=== PATIENT | female | born 1990 | race Two or more races ===

== ENCOUNTER → 2022-08-06 | Outpatient (CLI) | payer OTHER, SELFPAY | LOC: M WHC 06:46 | PROVIDERS: ATTEND Obstetrics & Gynecology | DX: Z34.92 Encounter for supervision of normal pregnancy, unspecified, second trimester (principal) ==

== ENCOUNTER → 2022-09-05 | Outpatient (CLI) | payer OTHER ==
[2022-09-05 14:55] LABS: MEAN CORPUSCULAR HEMOGLOBIN 29.3 pg (27.0-33.0); MEAN CORPUSCULAR HGB CONC 31.6 g/dl (32.0-36.5); MEAN CORPUSCULAR VOLUME 92.9 fl (80.0-96.0); PLATELET COUNT, AUTOMATED 269 10^3/uL (150-450); RED BLOOD COUNT 4.09 10^6/uL (4.00-5.40); WHITE BLOOD COUNT 10.4 10^3/uL (4.0-10.0)
== END ==
LOC: M PLALAB 12:20
PROVIDERS: ATTEND Specialist
DX: Z36.89 Encounter for other specified antenatal screening (principal)
CPT/HCPCS: 36415; 85027; 86850; 86900; 86901; G0463

== ENCOUNTER → 2022-09-24 | Outpatient (CLI) | payer OTHER ==
[2022-09-24 13:52] LABS: HEMATOCRIT 35.3 % (36.0-47.0); HEMOGLOBIN 11.2 g/dl (12.0-15.5); MEAN CORPUSCULAR HEMOGLOBIN 29.4 pg (27.0-33.0); MEAN CORPUSCULAR HGB CONC 31.7 g/dl (32.0-36.5); MEAN CORPUSCULAR VOLUME 92.7 fl (80.0-96.0); PLATELET COUNT, AUTOMATED 268 10^3/uL (150-450); RED BLOOD COUNT 3.81 10^6/uL (4.00-5.40)
[2022-09-24 15:50] LABS: GC DNA AMPLIFICATION NEGATIVE (NEGATIVE)
== END ==
LOC: M PLALAB 08:51
PROVIDERS: ATTEND Specialist
DX: Z34.82 Encounter for supervision of other normal pregnancy, second trimester (principal)

== ENCOUNTER → 2022-09-24 | Outpatient (CLI) | payer OTHER | LOC: M WHC 10:38 | PROVIDERS: ATTEND Specialist | DX: Z34.82 Encounter for supervision of other normal pregnancy, second trimester (principal) ==

== ENCOUNTER → 2022-09-26 | Outpatient (CLI) | payer OTHER | LOC: M LAB 07:38 | PROVIDERS: ATTEND Specialist | DX: Z34.82 Encounter for supervision of other normal pregnancy, second trimester (principal) ==

== ENCOUNTER → 2022-10-08 | Outpatient (CLI) | payer OTHER ==
[2022-10-08 17:33] LABS: HEMATOCRIT 37.3 % (36.0-47.0); HEMOGLOBIN 11.7 g/dl (12.0-15.5); MEAN CORPUSCULAR HEMOGLOBIN 29.3 pg (27.0-33.0); MEAN CORPUSCULAR HGB CONC 31.4 g/dl (32.0-36.5); MEAN CORPUSCULAR VOLUME 93.3 fl (80.0-96.0); PLATELET COUNT, AUTOMATED 248 10^3/uL (150-450); WHITE BLOOD COUNT 8.3 10^3/uL (4.0-10.0)
[2022-10-08 17:40] LABS: TOTAL PROTEIN,RANDOM URINE 6.2 MG/DL (0.0-14.0)
[2022-10-08 17:43] LABS: URIC ACID 4.3 MG/DL (3.1-7.8)
[2022-10-08 17:44] LABS: LDH LACTATE DEHYDROGENASE 149 U/L (120-246)
[2022-10-08 17:45] LABS: CREATININE,RANDOM URINE 58.4 MG/DL
[2022-10-08 17:46] LABS: ALT/SGPT 17 U/L (7.0-40); AST/SGOT 18 U/L (<34); BILIRUBIN,TOTAL 0.2 MG/DL (0.3-1.2); CREATININE FOR GFR 0.87 MG/DL (0.55-1.30); GLOMERULAR FILTRATION RATE > 60.0 (>60)
== END ==
LOC: M PLALAB 14:44
PROVIDERS: ATTEND Advanced Practice Midwife
DX: O13.9 Gestational [pregnancy-induced] hypertension without significant proteinuria, unspecified trimester (principal)

== ENCOUNTER 2022-10-29 11:37 | Emergency (ER) | payer OTHER ==
[~2022-10-29] VITALS: Ht 188 cm; Wt 124.5 kg
[2022-10-29 14:45] LABS: BASO % 0.2 % (0.0-1.0); EOS % 0.4 % (0.0-3.0); HEMATOCRIT 38.8 % (36.0-47.0); HEMOGLOBIN 12.4 g/dl (12.0-15.5); LYMPH # 1.9 10^3/uL (1.5-5.0); LYMPH % 22.5 % (24.0-44.0); MEAN CORPUSCULAR HEMOGLOBIN 29.2 pg (27.0-33.0); MEAN CORPUSCULAR VOLUME 91.3 fl (80.0-96.0); MONO # 0.5 10^3/uL (0.0-0.8); MONO % 5.5 % (2.0-8.0); NEUTROPHILS % 70.8 % (36.0-66.0); PLATELET COUNT, AUTOMATED 247 10^3/uL (150-450); RED BLOOD COUNT 4.25 10^6/uL (4.00-5.40); WHITE BLOOD COUNT 8.4 10^3/uL (4.0-10.0)
[2022-10-29 15:09] LABS: INR 0.96
[2022-10-29 15:12] LABS: LIPASE 32 U/L (12-53)
[2022-10-29 15:14] LABS: CPK CREATINE PHOSPHOKINASE 56 U/L (34-145)
[2022-10-29 15:18] LABS: ALBUMIN 2.8 G/DL (3.2-5.2); ALKALINE PHOSPHATASE 73 U/L (46-116); ALT/SGPT 17 U/L (7.0-40); AST/SGOT 19 U/L (<34); BILIRUBIN,DIRECT < 0.1 MG/DL (<0.4); BILIRUBIN,TOTAL 0.4 MG/DL (0.3-1.2); BLOOD UREA NITROGEN 10 MG/DL (9-23); CALCIUM LEVEL 9.1 MG/DL (8.5-10.1); CARBON DIOXIDE LEVEL 24 MMOL/L (20-31); CHLORIDE LEVEL 104 MMOL/L (98-107); CK-MB VALUE MASS < 1.0 NG/ML (<3.6); CREATININE FOR GFR 0.72 MG/DL (0.55-1.30); GLOMERULAR FILTRATION RATE > 60.0 (>60); GLUCOSE, FASTING 74 MG/DL (60-100); MB/CK RELATIVE INDEX 1.78 (< OR =4); POTASSIUM SERUM 4.1 MMOL/L (3.5-5.1); SODIUM LEVEL 137 MMOL/L (136-145); TOTAL PROTEIN 6.2 G/DL (5.7-8.2)
[2022-10-29 15:23] LABS: RSV AMPLIFICATION NEGATIVE (NEGATIVE)
[2022-10-29 17:12] LABS: CK-MB VALUE MASS < 1.0 NG/ML (<3.6)
[2022-10-29 17:14] LABS: CPK CREATINE PHOSPHOKINASE 52 U/L (34-145); MB/CK RELATIVE INDEX 1.92 (< OR =4)
[2022-10-29] MEDS ORDERED: GI COCKTAIL 50ML BTL(HYOSCYAMINE/MAALOX/LIDOCAINE VISCOUS)(1:3:1) PO ONE (17:25)
[2022-10-29] MEDS ORDERED: ACETAMINOPHEN 325 MG TAB PO ONE (17:25)
[2022-10-29 18:36] VITALS: BP 139/78
[2022-10-29] MEDS ORDERED: CALC-132 PO (19:05)
[2022-10-29] MEDS ORDERED: PRENTAB9 PO (19:05)
[2022-10-29] MEDS ORDERED: ACET-907 PO (19:05)
== END 2022-10-29 18:38 | disposition admitted as inpatient to this hospital (09) ==
LOC: M ED 11:37
DX: R07.89 Other chest pain (principal)

== ENCOUNTER 2022-10-29 18:45 | Outpatient (CLI) | payer OTHER ==
[~2022-10-29] VITALS: Ht 188 cm; Wt 126.8 kg
[2022-10-29 18:59] VITALS: BP 136/78
[2022-10-29] MEDS ORDERED: PRENTAB9 PO (19:05)
[2022-10-29] MEDS ORDERED: CALC-132 PO (19:05)
[2022-10-29] MEDS ORDERED: ACET-907 PO (19:05)
[2022-10-29] MEDS ORDERED: HOME MED LIST COMPLETE! XX SCH (19:10)
== END 2022-10-29 19:30 | disposition home or self-care (01) ==
LOC: M LDO 18:45
PROVIDERS: ATTEND Specialist
DX: O26.893 Other specified pregnancy related conditions, third trimester (principal); R07.9 Chest pain, unspecified; Z3A.32 32 weeks gestation of pregnancy
CPT/HCPCS: 36415; 59025; 71045; 80048; 80076; 82550; 82553; 83690; 84484; 85025; 85610; 87631; 93005; 99284; G0463

== ENCOUNTER → 2022-11-22 | Outpatient (REF) | payer OTHER ==
[~2022-11-22] MED LIST: ACET-907 PO; CALC-132 PO; PRENTAB9 PO
== END ==
LOC: M PLALAB 13:32
PROVIDERS: ATTEND Obstetrics & Gynecology
DX: Z34.80 Encounter for supervision of other normal pregnancy, unspecified trimester (principal)

== ENCOUNTER → 2022-12-06 | Outpatient (CLI) | payer OTHER ==
[2022-12-06 16:20] LABS: HEMATOCRIT 38.8 % (36.0-47.0); HEMOGLOBIN 12.2 g/dl (12.0-15.5); MEAN CORPUSCULAR HEMOGLOBIN 29.4 pg (27.0-33.0); MEAN CORPUSCULAR HGB CONC 31.4 g/dl (32.0-36.5); MEAN CORPUSCULAR VOLUME 93.5 fl (80.0-96.0); PLATELET COUNT, AUTOMATED 238 10^3/uL (150-450); RED BLOOD COUNT 4.15 10^6/uL (4.00-5.40); WHITE BLOOD COUNT 8.5 10^3/uL (4.0-10.0)
[2022-12-06 16:37] LABS: URIC ACID 4.4 MG/DL (3.1-7.8)
[2022-12-06 16:39] LABS: LDH LACTATE DEHYDROGENASE 159 U/L (120-246)
[2022-12-06 16:40] LABS: ALT/SGPT 30 U/L (7.0-40); AST/SGOT 24 U/L (<34); BILIRUBIN,TOTAL 0.3 MG/DL (0.3-1.2); CREATININE FOR GFR 0.76 MG/DL (0.55-1.30); CREATININE,RANDOM URINE 76.3 MG/DL; GLOMERULAR FILTRATION RATE > 60.0 (>60)
== END ==
LOC: M PLALAB 14:21
PROVIDERS: ATTEND Obstetrics & Gynecology
DX: O16.3 Unspecified maternal hypertension, third trimester (principal)
CPT/HCPCS: 36415; 82247; 82565; 82570; 83615; 84156; 84450; 84460; 84550; 85027; G0463

== ENCOUNTER 2022-12-13 18:51 | Outpatient (CLI) | payer OTHER ==
[~2022-12-13] VITALS: Ht 188 cm; Wt 135.3 kg
[2022-12-13 19:20] VITALS: BP 134/68
[2022-12-13 19:31] LABS: HEMATOCRIT 36.6 % (36.0-47.0); HEMOGLOBIN 11.8 g/dl (12.0-15.5); MEAN CORPUSCULAR HEMOGLOBIN 29.6 pg (27.0-33.0); MEAN CORPUSCULAR HGB CONC 32.2 g/dl (32.0-36.5); MEAN CORPUSCULAR VOLUME 91.7 fl (80.0-96.0); PLATELET COUNT, AUTOMATED 217 10^3/uL (150-450); RED BLOOD COUNT 3.99 10^6/uL (4.00-5.40); WHITE BLOOD COUNT 8.2 10^3/uL (4.0-10.0)
[2022-12-13 19:45] VITALS: BP 150/78
[2022-12-13 19:47] LABS: URIC ACID 4.2 MG/DL (3.1-7.8)
[2022-12-13 19:49] LABS: LDH LACTATE DEHYDROGENASE 146 U/L (120-246)
[2022-12-13 19:50] LABS: ALT/SGPT 32 U/L (7.0-40); AST/SGOT 19 U/L (<34); BILIRUBIN,TOTAL 0.3 MG/DL (0.3-1.2); CREATININE FOR GFR 0.74 MG/DL (0.55-1.30); GLOMERULAR FILTRATION RATE > 60.0 (>60)
[2022-12-13 19:56] VITALS: BP 142/72
[2022-12-13 19:57] LABS: TOTAL PROTEIN,RANDOM URINE 12.9 MG/DL (0.0-14.0)
[2022-12-13 20:02] LABS: CREATININE,RANDOM URINE 68.6 MG/DL
[2022-12-13 20:41] VITALS: BP 142/73
[2022-12-13 20:56] VITALS: BP 139/78
== END 2022-12-13 23:04 ==
LOC: M LDO 18:51
PROVIDERS: ATTEND Advanced Practice Midwife
DX: O13.3 Gestational [pregnancy-induced] hypertension without significant proteinuria, third trimester (principal); Z3A.39 39 weeks gestation of pregnancy
CPT/HCPCS: 36415; 59025; 76815; 76819; 76820; 82247; 82565; 82570; 83615; 84156; 84450; 84460; 84550; 85027; G0463

== ENCOUNTER 2022-12-14 17:38 | Inpatient (IN) | payer OTHER ==
[~2022-12-14] VITALS: Ht 188 cm; Wt 135.4 kg
[2022-12-14] MEDS ORDERED: HOME MED LIST COMPLETE! XX SCH (18:00)
[2022-12-14 18:03] VITALS: BP 134/63
[2022-12-14 18:27] VITALS: BP 149/69
[2022-12-14 19:11] VITALS: BP 143/76
[2022-12-14] MEDS ORDERED: LACTATED RINGER'S 1000 ML IV STA (19:22)
[2022-12-14] MEDS ORDERED: CARBOPROST TROMETHAMINE 250 MCG/ML AMP IM PRN (19:25)
[2022-12-14] MEDS ORDERED: OXYTOCIN DRIP 30 UNITS in IV 1 EA IV PRN (19:25)
[2022-12-14] MEDS ORDERED: TRANEXAMIC ACID INJection 1,000 MG in NS 100 ML IV PRN (19:25)
[2022-12-14] MEDS ORDERED: LIDOCAINE 1% MDV 20ML VIAL INFIL PRN (19:25)
[2022-12-14] MEDS: miSOPROStol 50MCG 1/2 TABLET SL SCH (20:28)
[2022-12-14 20:30] LABS: HEMATOCRIT 35.8 % (36.0-47.0); HEMOGLOBIN 11.5 g/dl (12.0-15.5); MEAN CORPUSCULAR HEMOGLOBIN 29.7 pg (27.0-33.0); MEAN CORPUSCULAR HGB CONC 32.1 g/dl (32.0-36.5); MEAN CORPUSCULAR VOLUME 92.5 fl (80.0-96.0); PLATELET COUNT, AUTOMATED 212 10^3/uL (150-450); RED BLOOD COUNT 3.87 10^6/uL (4.00-5.40); WHITE BLOOD COUNT 8.2 10^3/uL (4.0-10.0)
[2022-12-14 20:34] VITALS: BP 144/71
[2022-12-14 20:51] LABS: URIC ACID 4.3 MG/DL (3.1-7.8)
[2022-12-14 20:53] LABS: LDH LACTATE DEHYDROGENASE 147 U/L (120-246)
[2022-12-14 20:54] LABS: ALT/SGPT 26 U/L (7.0-40); AST/SGOT 18 U/L (<34); BILIRUBIN,TOTAL 0.3 MG/DL (0.3-1.2); CREATININE FOR GFR 0.65 MG/DL (0.55-1.30); GLOMERULAR FILTRATION RATE > 60.0 (>60)
[2022-12-14 21:55] VITALS: BP 140/66
[2022-12-14 22:50] LABS: TOTAL PROTEIN,RANDOM URINE 11.1 MG/DL (0.0-14.0)
[2022-12-14 22:55] LABS: CREATININE,RANDOM URINE 103.4 MG/DL
[2022-12-15] VITALS (23 sets, daily range): BP systolic 110–156; BP diastolic 53–87
[2022-12-15] MEDS: miSOPROStol 50MCG 1/2 TABLET SL SCH ×7 (00:33→23:40)
[2022-12-15] MEDS: LR 1,000 ML IV SCH ×3 (03:05→16:37)
[2022-12-15] MEDS ORDERED: OXYTOCIN DRIP 30 UNITS in IV 1 EA IV SCH (09:55)
[2022-12-15] MEDS: CLINDAMYCIN 900 MG in IV 1 EA IV SCH ×2 (10:32→18:49)
[2022-12-16] VITALS (36 sets, daily range): BP systolic 105–147; BP diastolic 52–82
[2022-12-16] MEDS: LR 1,000 ML IV SCH ×3 (01:00→20:05)
[2022-12-16] MEDS: CLINDAMYCIN 900 MG in IV 1 EA IV SCH ×3 (02:45→18:56)
[2022-12-17] VITALS (14 sets, daily range): BP systolic 105–147; BP diastolic 52–74
[2022-12-17 00:26] LABS: URIC ACID 4.1 MG/DL (3.1-7.8)
[2022-12-17 00:27] LABS: HEMATOCRIT 35.5 % (36.0-47.0); HEMOGLOBIN 11.2 g/dl (12.0-15.5); MEAN CORPUSCULAR HEMOGLOBIN 29.1 pg (27.0-33.0); MEAN CORPUSCULAR HGB CONC 31.5 g/dl (32.0-36.5); MEAN CORPUSCULAR VOLUME 92.2 fl (80.0-96.0); PLATELET COUNT, AUTOMATED 203 10^3/uL (150-450); RED BLOOD COUNT 3.85 10^6/uL (4.00-5.40)
[2022-12-17 00:28] LABS: LDH LACTATE DEHYDROGENASE 172 U/L (120-246)
[2022-12-17 00:29] LABS: ALT/SGPT 22 U/L (7.0-40); AST/SGOT 20 U/L (<34); BILIRUBIN,TOTAL 0.4 MG/DL (0.3-1.2); GLOMERULAR FILTRATION RATE > 60.0 (>60)
[2022-12-17] MEDS: CLINDAMYCIN 900 MG in IV 1 EA IV SCH (02:32)
[2022-12-17] MEDS: LR 1,000 ML IV SCH ×4 (02:57→15:05)
[2022-12-17] MEDS ORDERED: LACTATED RINGER'S 1000 ML IV STA (05:25)
[2022-12-17] MEDS ORDERED: CLINDAMYCIN 900 MG in IV 1 EA IV ONE (05:30)
[2022-12-17] MEDS ORDERED: ePHEDrine SULFATE 25 MG/5 ML(5MG/ML) SYRINGE As Ordered ONE (05:54)
[2022-12-17] MEDS ORDERED: MORPHINE PRES-FREE INJ 10 MG/10 ML VIAL As Ordered ONE (05:54)
[2022-12-17] MEDS ORDERED: OXYTOCIN 30UNITS IN 0.9% NaCl 500ML IV BAG As Ordered ONE ×2 (05:54→08:11)
[2022-12-17] MEDS ORDERED: PHENYLephrine 500MCG 5ML (100MCG/ML) SYRINGE As Ordered ONE (05:54)
[2022-12-17] MEDS ORDERED: BICITRA 30ML SOLN UDC PO ONE (06:00)
[2022-12-17] MEDS ORDERED: AZITHROMYCIN INJ 500 MG, VIAL MATE ADAPTER 1 EACH in NS 250 ML IV ONE (06:00)
[2022-12-17] MEDS ORDERED: ONDANSETRON 4MG 2ML VIAL As Ordered ONE (06:29)
[2022-12-17] MEDS ORDERED: GENTAMICIN 400 MG in D5W 100 ML IV ONE (06:30)
[2022-12-17] MEDS ORDERED: KETOROLAC 60MG 2ML VIAL As Ordered ONE (06:39)
[2022-12-17 06:50] LABS: CORD GAS HCO3 V 25.1 MEQ/L; CORD GAS O2 SAT V 68.5 %; CORD GAS PH V 7.345 UNITS; CORD GAS PO2 V 29.1 mmHg; CORD GAS SBC V 22.9 MEQ/L; CORD GAS TCO2 V 26.5 MEQ/L
[2022-12-17 06:52] LABS: CORD GAS ABE A -2.9; CORD GAS HCO3 A 25.5 MEQ/L; CORD GAS O2 SAT A 55.6 %; CORD GAS PCO2 A 60.1 mmHg; CORD GAS PH A 7.245 UNITS; CORD GAS PO2 A 25.8 mmHg; CORD GAS SBC A 21.1 MEQ/L; CORD GAS TCO2 A 27.3 MEQ/L
[2022-12-17] MEDS ORDERED: OXYTOCIN DRIP 30 UNITS in IV 1 EA IV SCH (07:05)
[2022-12-17] MEDS ORDERED: ONDANSETRON 4MG 2ML VIAL IV PRN ×2 (07:05→08:40)
[2022-12-17] MEDS ORDERED: SIMETHICONE 80MG CHEW TAB PO PRN (07:05)
[2022-12-17] MEDS ORDERED: MOM 30ML SUSPENSION UDC PO PRN (07:05)
[2022-12-17] MEDS ORDERED: RHOGAM 300MCG (1500IU) INJ IM SCH (07:05)
[2022-12-17] MEDS ORDERED: fentaNYL 100 MCG/2 ML INJECTION IV PRN (08:40)
[2022-12-17] MEDS ORDERED: NALOXONE INJ 0.4MG/1ML VIAL IV PRN ×2 (08:40)
[2022-12-17] MEDS ORDERED: NORCO, ANEXSIA 5/325MG TABLET (HYDROcodone/ACETAMINOPHEN) PO PRN (08:40)
[2022-12-17] MEDS ORDERED: LR 1,000 ML IV SCH (08:40)
[2022-12-17] MEDS ORDERED: METOCLOPRAMIDE INJ 10MG/2ML VIAL IV PRN (08:40)
[2022-12-17] MEDS ORDERED: diphenhydrAMINE 50MG/ML VIAL IV PRN (08:40)
[2022-12-17] MEDS: SLF 3 ML SYR IV SCH ×2 (08:40→16:40)
[2022-12-17] MEDS ORDERED: MEPERIDINE 25 MG/ML 1ML VIAL IV PRN (08:40)
[2022-12-17] MEDS ORDERED: **NOTE PATIENT COMMENT** MISC XX SCH (08:40)
[2022-12-17] MEDS: DOCUSATE SODIUM 100MG CAPSULE PO SCH ×2 (09:00→21:28)
[2022-12-17] MEDS: PRENATAL VITAMINS CHEWABLE TABLET PO SCH (09:00)
[2022-12-17] MEDS: NORCO, ANEXSIA 5/325MG TABLET (HYDROcodone/ACETAMINOPHEN) PO PRN ×3 (10:07→21:57)
[2022-12-17] MEDS: KETOROLAC 30 MG/ML 1ML VIAL IV SCH ×2 (12:42→18:34)
[2022-12-18] VITALS (7 sets, daily range): BP systolic 120–179; BP diastolic 59–87
[2022-12-18] MEDS: SLF 3 ML SYR IV SCH (01:00)
[2022-12-18] MEDS: KETOROLAC 30 MG/ML 1ML VIAL IV SCH (01:01)
[2022-12-18] MEDS: NORCO, ANEXSIA 5/325MG TABLET (HYDROcodone/ACETAMINOPHEN) PO PRN ×4 (05:49→22:06)
[2022-12-18 06:38] LABS: HEMATOCRIT 34.5 % (36.0-47.0); HEMOGLOBIN 10.7 g/dl (12.0-15.5); MEAN CORPUSCULAR HEMOGLOBIN 29.2 pg (27.0-33.0); MEAN CORPUSCULAR VOLUME 94.3 fl (80.0-96.0); PLATELET COUNT, AUTOMATED 172 10^3/uL (150-450); RED BLOOD COUNT 3.66 10^6/uL (4.00-5.40); WHITE BLOOD COUNT 10.9 10^3/uL (4.0-10.0)
[2022-12-18] MEDS: PRENATAL VITAMINS CHEWABLE TABLET PO SCH (08:32)
[2022-12-18] MEDS: IBUPROFEN 800 MG TAB PO SCH ×2 (08:33→16:49)
[2022-12-18] MEDS: DOCUSATE SODIUM 100MG CAPSULE PO SCH ×2 (08:53→21:00)
[2022-12-18] MEDS: LABETALOL 100MG TAB PO SCH (20:41)
[2022-12-19] MEDS: IBUPROFEN 800 MG TAB PO SCH ×2 (00:36→07:34)
[2022-12-19 02:00] VITALS: BP 133/63
[2022-12-19 06:00] VITALS: BP 138/84
[2022-12-19] MEDS: DOCUSATE SODIUM 100MG CAPSULE PO SCH (07:30)
[2022-12-19] MEDS: PRENATAL VITAMINS CHEWABLE TABLET PO SCH (07:30)
[2022-12-19 07:33] VITALS: BP 136/78
[2022-12-19] MEDS: LABETALOL 100MG TAB PO SCH (07:33)
[2022-12-19 07:39] VITALS: BP 136/78
[2022-12-19] MEDS ORDERED: HYDR-3715 PO (08:58)
[2022-12-19] MEDS ORDERED: LABE100T6 PO (08:58)
[2022-12-19] MEDS ORDERED: COLA100C5 PO (08:58)
[2022-12-19] MEDS ORDERED: IBUP-1022 PO (08:58)
[2022-12-19] MEDS ORDERED: MEASLES,MUMPS,RUBELLA VACCINE INJ (MMR-II) SC.IMMUN ONE (09:00)
[2022-12-19 10:11] VITALS: BP 138/66
== END 2022-12-19 12:50 | disposition home or self-care (01) | DRG 773 ==
LOC: M LDO 17:38 → M LDI 19:55 → M OBS 12-17 08:45
PROVIDERS: ADMIT Obstetrics & Gynecology; ATTEND Obstetrics & Gynecology
PROC: 3E0P7GC Introduction of Other Therapeutic Substance into Female Reproductive, Via Natural or Artificial Opening (ICD-10-PCS; 2022-12-14)
PROC: 10907ZC Drainage of Amniotic Fluid, Therapeutic from Products of Conception, Via Natural or Artificial Opening (ICD-10-PCS; 2022-12-16)
PROC: 10D00Z1 Extraction of Products of Conception, Low, Open Approach (ICD-10-PCS; principal; 2022-12-17 06:30)
DX: O13.4 Gestational [pregnancy-induced] hypertension without significant proteinuria, complicating childbirth (principal); Z3A.39 39 weeks gestation of pregnancy; O99.824 Streptococcus B carrier state complicating childbirth; O77.0 Labor and delivery complicated by meconium in amniotic fluid; O62.0 Primary inadequate contractions; Z37.0 Single live birth; Z88.2 Allergy status to sulfonamides; Z88.5 Allergy status to narcotic agent

== ENCOUNTER → 2023-07-17 | Outpatient (CLI) | payer OTHER ==
[~2023-07-17] MED LIST changes: +COLA100C5 PO; +HYDR-3715 PO; +IBUP-1022 PO; +LABE100T6 PO
== END ==
LOC: M PLALAB 09:49
PROVIDERS: ATTEND Obstetrics & Gynecology
DX: Z34.81 Encounter for supervision of other normal pregnancy, first trimester (principal)

== ENCOUNTER → 2023-08-06 | Outpatient (CLI) | payer OTHER ==
[2023-08-06 17:14] LABS: HEMOGLOBIN 12.2 g/dl (12.0-15.5); MEAN CORPUSCULAR HGB CONC 32.1 g/dl (32.0-36.5); MEAN CORPUSCULAR VOLUME 90.3 fl (80.0-96.0); PLATELET COUNT, AUTOMATED 271 10^3/uL (150-450); RED BLOOD COUNT 4.21 10^6/uL (4.00-5.40)
[2023-08-06 18:21] LABS: HIV 1&2 SCREEN NEGATIVE (NEGATIVE)
[2023-08-06 18:29] LABS: HEPATITIS C VIRUS ABY INDEX 0.03 INDEX (<0.8)
[2023-08-06 19:06] LABS: CHLAMYDIA DNA AMPLIFICATION NEGATIVE (NEGATIVE); GC DNA AMPLIFICATION NEGATIVE (NEGATIVE)
== END ==
LOC: M PLALAB 16:18
PROVIDERS: ATTEND Obstetrics & Gynecology
DX: O34.211 Maternal care for low transverse scar from previous cesarean delivery (principal); Z3A.00 Weeks of gestation of pregnancy not specified
CPT/HCPCS: 36415; 85027; 86762; 86780; 86803; 86850; 86900; 86901; 87086; 87340; 87389; 87810; 87850; G0463

== ENCOUNTER → 2023-08-27 | Outpatient (REF) | payer OTHER | LOC: M SFHCWAGY 15:32 | PROVIDERS: ATTEND Obstetrics & Gynecology | DX: Z34.80 Encounter for supervision of other normal pregnancy, unspecified trimester (principal) ==

== ENCOUNTER → 2023-09-12 | Outpatient (CLI) | payer OTHER | LOC: M WHC 10:00 | PROVIDERS: ATTEND Obstetrics & Gynecology | DX: O34.211 Maternal care for low transverse scar from previous cesarean delivery (principal); Z3A.19 19 weeks gestation of pregnancy ==

== ENCOUNTER → 2023-09-25 | Outpatient (CLI) | payer OTHER ==
[~2023-09-25] VITALS: Ht 188 cm; Wt 130.2 kg
[~2023-09-25] MED LIST changes: +ACETAMINOPHEN 500 MG TAB PO ONE; +HOME MED LIST COMPLETE! XX SCH
[2023-09-25 17:07] VITALS: BP 135/63
[2023-09-25 18:29] LABS: HEMATOCRIT 38.1 % (36.0-47.0); HEMOGLOBIN 12.3 g/dl (12.0-15.5); MEAN CORPUSCULAR HEMOGLOBIN 29.3 pg (27.0-33.0); MEAN CORPUSCULAR HGB CONC 32.3 g/dl (32.0-36.5); MEAN CORPUSCULAR VOLUME 90.7 fl (80.0-96.0); PLATELET COUNT, AUTOMATED 276 10^3/uL (150-450); WHITE BLOOD COUNT 8.5 10^3/uL (4.0-10.0)
[2023-09-25 18:46] LABS: CREATININE,RANDOM URINE 18.6 MG/DL; TOTAL PROTEIN,RANDOM URINE < 6.0 MG/DL (0.0-14.0)
[2023-09-25 18:52] LABS: LDH LACTATE DEHYDROGENASE 141 U/L (120-246)
[2023-09-25 18:53] LABS: ALBUMIN 3.2 G/DL (3.2-5.2); ALKALINE PHOSPHATASE 45 U/L (46-116); ALT/SGPT 12 U/L (7.0-40); AST/SGOT 9 U/L (<34); BILIRUBIN,TOTAL 0.2 MG/DL (0.3-1.2); BLOOD UREA NITROGEN 10 MG/DL (9-23); CALCIUM LEVEL 9.4 MG/DL (8.5-10.1); CARBON DIOXIDE LEVEL 25 MMOL/L (20-31); CHLORIDE LEVEL 104 MMOL/L (98-107); CREATININE FOR GFR 0.65 MG/DL (0.55-1.30); GLOMERULAR FILTRATION RATE > 60.0 (>60); GLUCOSE, FASTING 85 MG/DL (60-100); POTASSIUM SERUM 4.1 MMOL/L (3.5-5.1); SODIUM LEVEL 135 MMOL/L (136-145); TOTAL PROTEIN 6.6 G/DL (5.7-8.2)
[2023-09-25 19:21] VITALS: BP 137/71
== END ==
LOC: M LDO 16:47
PROVIDERS: ATTEND Obstetrics & Gynecology
DX: O26.892 Other specified pregnancy related conditions, second trimester (principal); R03.0 Elevated blood-pressure reading, without diagnosis of hypertension; R51.9 Headache, unspecified; O34.211 Maternal care for low transverse scar from previous cesarean delivery; Z3A.21 21 weeks gestation of pregnancy
CPT/HCPCS: 36415; 59025; 80053; 82570; 83615; 84156; 85027; G0463

== ENCOUNTER → 2023-10-23 | Outpatient (CLI) | payer OTHER ==
[~2023-10-23] MED LIST changes: -ACETAMINOPHEN 500 MG TAB PO ONE; -HOME MED LIST COMPLETE! XX SCH
== END ==
LOC: M WHC 13:03
PROVIDERS: ATTEND Obstetrics & Gynecology
DX: O34.211 Maternal care for low transverse scar from previous cesarean delivery (principal); Z3A.25 25 weeks gestation of pregnancy

== ENCOUNTER → 2023-11-07 | Outpatient (CLI) | payer OTHER ==
[2023-11-07 14:20] LABS: HEMOGLOBIN 11.5 g/dl (12.0-15.5); MEAN CORPUSCULAR HEMOGLOBIN 29.4 pg (27.0-33.0); MEAN CORPUSCULAR HGB CONC 31.9 g/dl (32.0-36.5); MEAN CORPUSCULAR VOLUME 92.1 fl (80.0-96.0); PLATELET COUNT, AUTOMATED 242 10^3/uL (150-450); RED BLOOD COUNT 3.91 10^6/uL (4.00-5.40); WHITE BLOOD COUNT 7.7 10^3/uL (4.0-10.0)
[2023-11-07 15:54] LABS: GC DNA AMPLIFICATION NEGATIVE (NEGATIVE)
== END ==
LOC: M PLALAB 07:59
PROVIDERS: ATTEND Obstetrics & Gynecology
DX: O34.211 Maternal care for low transverse scar from previous cesarean delivery (principal); Z3A.00 Weeks of gestation of pregnancy not specified

== ENCOUNTER → 2023-11-28 | Outpatient (CLI) | payer OTHER | LOC: M LAB 07:33 | PROVIDERS: ATTEND Obstetrics & Gynecology | DX: R73.09 Other abnormal glucose (principal) ==

== ENCOUNTER → 2023-12-31 | Outpatient (REF) | payer OTHER | LOC: M SFHCWAGY 12:32 | PROVIDERS: ATTEND Obstetrics & Gynecology | DX: Z36.89 Encounter for other specified antenatal screening (principal); Z3A.36 36 weeks gestation of pregnancy ==